=== PATIENT | male | born 1960 | race Caucasian/White ===

== ENCOUNTER 2021-11-20 07:09 | Day surgery (SDC) | payer OTHER, SELFPAY ==
[2021-11-20] VITALS (22 sets, daily range): BP systolic 98–150; BP diastolic 65–88; PULSE 44–70; RESP 12–18; TEMP 35.8–37.1; O2SAT 93–100; BMI 34.4
[2021-11-20] MEDS: OXYCODONE (CR) 10 MG TAB.ER.12H PO (07:50)
[2021-11-20] MEDS: ACETAMINOPHEN 500 MG TABLET 1000 MG PO ×3 (07:50→21:47)
[2021-11-20] MEDS: CELECOXIB 200 MG CAPSULE PO ×2 (07:50→20:55)
[2021-11-20] MEDS: LACTATED RINGERS 1000 ML 1,000 ML 100 ML IV (08:00)
[2021-11-20] MEDS: MIDAZOLAM HCL 1 MG/ML inj IVP (08:01)
[2021-11-20] MEDS: fentaNYL 100 MCG/2 ML inj IVP (08:01)
[2021-11-20] MEDS: CEFAZOLIN 2 GM INJ IVP (08:33)
--- NOTE | 2021-11-20 08:36 | SUR.PREOP ---
TIME?OUT:?0800 PT/RN/MDA?VERIFICATION?OF?SURGICAL?SITE,?PROCEDURE,?AND?CONSENT OBTAINED?PRIOR?TO?INVASIVE?PROCEDURE.
--- NOTE | 2021-11-20 09:09 | P.NB_ITS ---
Nerve Block Nerve Block Time Seen by Provider: 07:30 Date Seen: 11/20/21 Type of block requested by surgeon for post-operative analgesia: adductor canal Side: right Time out performed: Yes Verification of patient name: Yes Verification of date of : Yes Site marking: site marked Name of person performing procedure: Ramos Continuous monitoring Was continuous monitoring of O2 sat, B/P, cardiac monitor technician, recorded every 15 minutes?: Yes Procedure Checklist: sterile prep, needles and gloves Ultrasound guided. Images saved: Yes Medications given in 5ml increments after negative aspiration: Ropivicaine %: 0.5 mL: 20 Needle gauge: 22 Decadron (mg): 10 Precedex (mcg): 25 Patient tolerated procedure well: Yes Additional comments: Needle noted adjacent to nerve Block Charges Block Charge (with Pro Fee): Femoral Nerve Use of Ultrasound Machine for Block: Yes- US Guidance/pain block
--- NOTE | 2021-11-20 09:09 | P.NB_ITS ---
Nerve Block Nerve Block Time Seen by Provider: 07:30 Date Seen: 11/20/21 Type of block requested by surgeon for post-operative analgesia: geniculars Time out performed: Yes Verification of patient name: Yes Verification of date of : Yes Site marking: site marked Name of person performing procedure: Ramos Continuous monitoring Was continuous monitoring of O2 sat, B/P, campus monitor, recorded every 15 minutes?: Yes Procedure Checklist: sterile prep, needles and gloves Medications given in 5ml increments after negative aspiration: Ropivicaine %: 0.5 mL: 9 Needle gauge: 25 Patient tolerated procedure well: Yes Block Charges Block Charge (with Pro Fee): Genicular Nerve Block Use of Ultrasound Machine for Block: No
--- NOTE | 2021-11-20 09:43 | CRLHL7_ITS ---
For Patients: As a result of the Cures Act, medical imaging exams and procedure reports are released immediately into your electronic medical record. You may view this report before your referring provider. If you have questions, please contact your health care provider. Indication: POST OP RIGHT TKA Technique: Two views right knee Findings/Impression: Hardware from a right total knee arthroplasty is in satisfactory position. Bone alignment is normal. No sign of acute fracture. Postop changes are within normal limits. Dictated by Ashish Mao MD @ 11/20/2021 11:13:06 AM (Electronically Signed)
--- NOTE | 2021-11-20 09:44 | PM.ORPRC ---
Procedure Note Date of procedure: 11/20/21 Procedure: SURGEON: Hu Kapadia MD SUPERVISOR DOG LICENSE OFFICER: KERRIE Gregg PREOPERATIVE DIAGNOSIS: Right knee osteoarthritis POSTOPERATIVE DIAGNOSIS: Right knee osteoarthritis NAME OF OPERATION: Right total knee arthroplasty ANESTHESIA: Spinal ESTIMATED BLOOD LOSS: 0 mL COMPLICATIONS: None SPECIMENS: None DRAINS: None PREOPERATIVE ANTIBIOTICS: Ancef for grams IMPLANTS: 1. J&J Attune #6 posterior stabilized femur 2. #6 fixed-bearing tibia 3. #6 posterior stabilized, 7 mm fixed-bearing polyethylene 4. 41 patella INDICATIONS: The patient is a 61-year-old male with a longstanding history of severe, unrelenting right knee pain secondary to end-stage (grade IV) right knee osteoarthritis. Despite appropriate nonoperative management, including activity modification, anti-inflammatories, gknl-ejv-[id number] pain medication, bracing, physical therapy, and injections they continue to have pain and disability. Operative intervention was offered. The risks, benefits and expected outcomes were discussed in detail. These included but were not limited to: Infection, bleeding, injury to blood vessel or nerve, venous thromboembolism. All questions were answered to their satisfaction. Use of an retail assistant store manager was necessary throughout the case for patient positioning and safety, soft tissue retraction, and closure. PROCEDURE: Spinal anesthesia was administered. The patient was placed supine on the operating table. The retail assistant store manager made sure the patient was positioned appropriately. The lower extremity was prepped and draped in the usual sterile fashion. The limb was exsanguinated with the Vishnu bandage. The pneumatic tourniquet was inflated to 300 mmHg. A standard anterior incision was made with the knee in flexion. Subcutaneous dissection was sharply taken through fascial layer #1. Full-thickness medial and lateral flaps were elevated. The retail assistant store manager retracted the soft tissues and protected them throughout the case. A standard medial parapatellar approach was made. The patella was everted. The infrapatellar fat pad was preserved. The menisci and cruciate ligaments were sharply d?brided. Marginal osteophytes were d?brided with the rongeur. The drill was used to penetrate the femoral canal. The canal was aspirated and irrigated with pulse lavage. The intramedullary femoral guide was placed for a 5-degree valgus cut, removing 10 mm off the distal femur. The saw was used to make the cut. Whitesides line and the trans epicondylar axis were marked. The femoral sizing guide was pinned onto the distal femur. Three degrees of external rotation nicely parallels the transepicondylar axis. Pins were placed for posterior referencing. The four-in-one cutting guide was pinned onto the distal femur. The anterior, posterior, and chamfer cuts were made. The retail assistant store manager protected the collateral ligaments. The box cutting guide was pinned. The box cuts were made. The boxed trial was placed and was an excellent fit. Drill holes for the lugs were made. Attention was then turned to the proximal tibia. The extramedullary tibial guide was placed for a neutral varus/valgus cut with 5 degrees of posterior slope, removing 4 5th mm based off the medial tibial surface. The retail assistant store manager protected the collateral ligaments and the neurovascular bundle. The saw was used to make the cut. Trial components were placed. The knee was nicely balanced in both flexion and extension. Rotation of the tibial component was matched to the femur in full extension, matched to our tibial cutting pins, and marked with cautery. The trial components were removed. The tray was pinned by the retail assistant store manager and the drill and the punch were used. The tray was removed. The punch was used again. We placed a bone plug in the femoral canal. Attention was then turned to the patella. [place] patellar thickness was 26 mm. The lobster claw resection guide was used with the 9.5 mm marcio. The saw was used to make the cut. Drill holes were made by the retail assistant store manager. The trial was placed and was an excellent fit. Cancellous surfaces were irrigated with pulse lavage and thoroughly dried by the retail assistant store manager. We cemented the tibial component, then the femoral component. A trial spacer was placed. The knee was brought into full extension. We then cemented the patellar component. Excessive cement was removed. The cement was allowed to harden. Any remaining excessive cement was removed with the osteotome. We impacted the 7 mm polyethylene onto the tibial tray. The knee was taken through a range of motion and was found to be nicely balanced in both flexion and extension. The patella tracks centrally. The retail assistant store manager did a three minute dilute Betadine solution soak. The retail assistant store manager irrigated the wound with 3 liters of normal saline via pulse lavage. The retail assistant store manager reapproximated the extensor mechanism with #1 Vicryl in an interrupted [id number] fashion. The retail assistant store manager then ran the extensor mechanism with a #1 PDO Stratafix. The retail assistant store manager closed the subcutaneous tissues with a 3-0 Stratafix and the skin with a running 3-0 Stratafix in a subcuticular fashion. Glue was used to seal the skin. The retail assistant store manager placed a dry dressing, ELEUTERIO stocking, and Polar Care. Sponge and needle counts were correct x2. The patient tolerated the procedure well. There were no apparent complications. They were carefully transferred to the hospital bed and taken to the postanesthesia care unit in satisfactory condition. PLAN: The patient will be mobilized with physical therapy. Aspirin will be used for DVT prophylaxis. They will be discharged to home once medically appropriate.
[2021-11-20] MEDS: LACTATED RINGERS 1000 ML 1,000 ML 35 ML IV (10:14)
--- NOTE | 2021-11-20 10:21 | W.ANESCHARGE ---
Anesthesia Charges Start Date/Time Anesthesia Start Date: 11/20/21 Anesthesia Start Time: 08:13 Stop Date/Time Anesthesia Stop Date: 11/20/21 Anesthesia Stop Time: 10:19 Summary Emergency: No
--- NOTE | 2021-11-20 11:39 | W.ANESCHARGE ---
Anesthesia Charges Start Date/Time Anesthesia Start Date: 11/20/21 Anesthesia Start Time: 08:13 Stop Date/Time Anesthesia Stop Date: 11/20/21 Anesthesia Stop Time: 10:19 Summary Emergency: No
[2021-11-20] MEDS: NICOTINE 2 MG GUM BUCCAL ×2 (12:21→15:09)
[2021-11-20] MEDS: CEFAZOLIN 2 GM in 0.9 % SODIUM CHLORIDE Mini-bag 100 ML IVPB ×2 (14:51→21:48)
--- NOTE | 2021-11-20 15:25 | P.IMCN_ITS ---
Date of Consult Patient: Chato Patient Consult date: 11/20/21 Requesting Physician: Orthopedics (Kang) Primary Care Provider: Marlee Luis PA-C Consult Narrative Reason for consult: Medical management of hyponatremia Narrative: Ap Pichardo is a 61 year old male a recent history of mild asymptomatic hyponatremia who underwent elective right total knee arthroplasty by Dr. Kapadia today for severe osteoarthritis. He is doing well postoperatively. He has no complaints. He asked me about getting a colonoscopy next month. He had a normal one at age 51 and is due for his next one. He has a h/o constipation but is having occasionally diarrhea over the last 3-6 months. He denies blood in the stool or melena. I told him that he should schedule it to take place after he completes the postop twice a day aspirin. Review of Systems Status of ROS: Reports: 10 or more systems reviewed and unremarkable except as noted in History and below GI: Reports: diarrhea (3-6 months) and constipation; Denies: blood in stool : Denies: painful urination or urinary frequency PFSH PFSH Medical History (Updated 11/20/21 @ 16:53 by Crista Vázquez MD) Alcohol abuse (08/14/11) Arthritis Back pain Blurring of visual image Bulge of lumbar disc without myelopathy Chewing tobacco use (08/14/11) Chronic sinusitis Closed head injury Drug abuse (08/14/11) Generalized anxiety disorder H/O flexible sigmoidoscopy High cholesterol Hyperlipidemia (08/14/11) Hypertension Hyponatremia Meniere disease Normal colonoscopy Obesity (08/14/11) Sedative dependence Sensorineural hearing loss (SNHL) Tinnitus of right ear Surgical History (Updated 11/20/21 @ 15:26 by Crista Vázquez MD) History of ear surgery History of facial surgery History of tonsillectomy and adenoidectomy Hx of wisdom tooth extraction S/P appendectomy Status post total knee replacement, right Family History (Updated 11/20/21 @ 15:24 by Crista Vázquez MD) Father Depression Heart disease Brother Depression Social History (Updated 11/20/21 @ 16:45 by Crista Vázquez MD) Narrative: Living with girlfriend What is your current living situation: I presently have a place to live Previous occupational history: 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 Driving times are 45 minutes in cab at the most per leg of trip. This is a restriction that he has due to h/o back injury from miguel a. Smoking Status: Never smoker How often do you have a drink containing alcohol: never AUDIT-C Alcohol total score: 0 Non-prescribed substance use: denies use Meds Home Medications and Allergies Home Medications Medication Instructions Recorded Confirmed Type clonazepam 1 mg tablet (Klonopin) 1 mg PO TID 10/31/21 11/20/21 History amlodipine 10 mg tablet 10 mg PO DAILY 11/20/21 11/20/21 History atorvastatin 20 mg tablet 20 mg PO HS 11/20/21 11/20/21 History gabapentin 600 mg tablet 600 mg PO TID PRN 11/20/21 11/20/21 History lisinopril 20 mg tablet 20 mg PO HS 11/20/21 11/20/21 History mirtazapine 15 mg tablet 15 mg PO HS 11/20/21 11/20/21 History sertraline 100 mg tablet 200 mg PO DAILY 11/20/21 11/20/21 History tadalafil 10 mg tablet 10 mg PO PRN 11/20/21 History tizanidine 4 mg tablet 4 mg PO TID 11/20/21 11/20/21 History Home Medication Comments: Also uses nicotine pouches (like gum, but it is a powder that goes between lip and gum) 7mg every 1-2 hours as needed, uses about every 1.5 hours, more when stressed. He has not taken any Klonopin since yesterday afternoon. Allergies Allergy/AdvReac Type Severity Reaction Status Date / Time codeine Allergy Unknown Verified 11/20/21 07:01 penicillin V Allergy Unknown Verified 11/20/21 07:01 amoxicillin Allergy Intermediate unknown Uncoded 10/31/21 15:00 Exam Narrative: Exam Narrative: General: No acute distress. Awake alert oriented x3. Pleasant, talkative. HEENT: Normocephalic atraumatic, pupils equally round and reactive to light and accommodation. Oropharynx clear. Mucous membranes are moist. No cervical lymphadenopathy, thyromegaly or carotid bruits. No JVD. Cardiovascular: Regular rate and rhythm. No murmurs, gallops, or rubs. Chest: No increased work of breathing. Clear to auscultation bilaterally. No crackles or wheezes. Abdomen: Obese. Bowel sounds present. Soft, nondistended, nontender. No hepatosplenomegaly or masses. Extremities: Right knee bandage is clean, dry, and intact. No edema, no cyanosis or clubbing. Skin: No jaundice, no pallor, no rashes. Const: Vital Signs, click to edit/add: Vital Signs - 24 hr 11/20/21 07:15 11/20/21 10:14 11/20/21 10:20 Temperature 98.6 F 97.4 F L Pulse Rate 54 L 52 L 48 L Pulse Rate [Right Pulse Oximeter] Respiratory Rate 14 14 16 Blood Pressure 129/79 100/68 98/65 Blood Pressure [Le ft Arm] Pulse Oximetry 98 94 93 Oxygen Delivery Ne thod Room Air Room Air Room Air 11/20/21 10:50 11/20/21 10:25 11/20/21 10:30 Temperature 97.6 F 97.5 F L Pulse Rate 49 L 47 L 47 L Pulse Rate [Right Pulse Oximeter] Respiratory Rate 12 12 14 Blood Pressure 107/74 106/70 105/74 Blood Pressure [Le ft Arm] Pulse Oximetry 94 94 94 [facility] Room Air Room Air 11/20/21 10:35 11/20/21 10:40 11/20/21 10:45 Temperature Pulse Rate 46 L 45 L 47 L Pulse Rate [Right Pulse Oximeter] Respiratory Rate 12 12 14 Blood Pressure 101/67 100/69 102/66 Blood Pressure [Le ft Arm] Pulse Oximetry 94 95 94 Oxygen Delivery [facility] Room Air Room Air Room Air 11/20/21 11:27 11/20/21 11:15 11/20/21 11:30 Temperature 96.5 F L 96.5 F L 96.5 F L Pulse Rate 47 L Pulse Rate [Right Pulse Oximeter] 44 L 49 L Respiratory Rate 16 16 16 Blood Pressure Blood Pressure [Le ft Arm] 118/74 110/72 116/76 Pulse Oximetry 96 97 [facility] Room Air Room Air 11/20/21 11:45 11/20/21 12:00 11/20/21 12:30 Temperature 96.5 F L 96.7 F L 96.7 F L Pulse Rate Pulse Rate [Right Pulse Oximeter] 51 L 46 L 51 L Respiratory Rate 16 16 16 Blood Pressure Blood Pressure [Le ft Arm] 113/77 122/75 121/88 Pulse Oximetry 98 97 97 Oxygen Delivery Me thod Room Air Room Air Room Air Imaging Right knee x-ray: Attestation: I have reviewed the pertinent imaging results. Radiologist's impression: Ordering Physician: Hu Kapadia M.D. Date of Service: 11/20/21 Procedure(s): XR knee RT 2V Accession Number(s): [id number] cc: Marlee Luis PA-C; Hu Kapadia M.D.~ For Patients: As a result of the Cures Act, medical imaging exams and procedure reports are released immediately into your electronic medical record. You may view this report before your referring provider. If you have questions, please contact your health care provider. Indication: POST OP RIGHT TKA Technique: Two views right knee Findings/Impression: Hardware from a right total knee arthroplasty is in satisfactory position. Bone alignment is normal. No sign of acute fracture. Postop changes are within normal limits. Dictated by Ashish Mao MD @ 11/20/2021 11:13:06 AM (Electronically Signed) Assessment and Plan Assessment and plan (1) Status post right knee replacement: Problem comment: 11/20/2021 Kang Status: Acute Assessment and Plan: Pain control adequate. Routine post TKA prophylaxis with BID aspirin. PT and OT. Cares per Ortho. 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 Sodium check pending for morning. (6) Alcohol abuse: Problem comment: clean since 1990 Status: Chronic (7) Sedative dependence: Problem comment: Had been using Xanax, was switched to Klonopin which he takes 3 times a day. Status: Chronic Assessment and Plan: He has not had his Klonopin since yesterday afternoon. Does not appear to be going through withdrawals. Restart now. (8) Nicotine addiction: Problem comment: Uses nicotine pouches every 1-2 hours while awake Status: Acute Assessment and Plan: I have ordered this as a non formulary medication and have asked him to let us know each time he takes it. He demonstrated understanding about this.
--- NOTE | 2021-11-20 15:26 | PC.NURSE ---
Pt. up to floor at 1100. Pt. alert and oriented x4, pleasant and cooperative, GF at bedside, Pt. denies any pain, no N/V. Pt. Bradycardiac from surgery. HR improved as the day progressed. Dressing to Right knee C/D/I. Bilateral teds, bilateral plexi pulses and cryocuff to op site. IV patent in right hand, LR @ 75 mls/hr. Pt. tolerating ice chips, and water. Pt. ordered tray for lunch and ate 100%. tolerated well. Pt. able to move toes, but denies any feeling in right leg. PT in and got pt. to ambulate to chair, pt. tolerated activity well.
[2021-11-20] MEDS: OXYCODONE 5 MG TABLET PO ×3 (15:50→20:57)
--- NOTE | 2021-11-20 17:59 | PC.NURSE ---
PATIENT UP WITH A1 WALKER AND BELT TOLERATING FAIRLY, RATING PAIN IN RIGHT LEG 3-5/10 BEING MANAGED WITH PRN OXYCODONE AND SCHEDULED TYLENOL, DRESSING CDI, TOLERATING REGULAR DIET NO NAUSEA OR VOMITING.
[2021-11-20] MEDS: ATORVASTATIN 10 MG TABLET 20 MG PO (20:55)
[2021-11-20] MEDS: SENNOSIDES 1 TAB TABLET 2 TAB PO (20:55)
[2021-11-20] MEDS: clonazePAM 0.5 MG TABLET 1 MG PO (20:55)
[2021-11-20] MEDS: ASPIRIN 81 MG TABLET EC PO (20:56)
--- NOTE | 2021-11-20 22:57 | PC.NURSE ---
19-23: pleasant and cooperative. A x 1 with gb and walker. Pain 3-5/10 in right calf, PRN oxy given with relief. Pt requested to take his Mirtazapine later than scheduled time. VSS. Cryp cuff on, dressing CDI.
[2021-11-21] MEDS: OXYCODONE 5 MG TABLET PO ×4 (02:04→12:04)
[2021-11-21] MEDS: MIRTAZAPINE 15 MG TABLET PO (02:04)
[2021-11-21 02:39] VITALS: BP 132/65; PULSE 67; RESP 16; TEMP 36.8; O2SAT 98
[2021-11-21] MEDS: ACETAMINOPHEN 500 MG TABLET 1000 MG PO ×2 (03:18→09:56)
--- NOTE | 2021-11-21 05:17 | PC.NURSE ---
[id number] Pt awake until approx 0330, at which time pt finally able to fall asleep. Up to BR with walker, GB, SBA, and tolerates activity very well. Dressing to R knee C/D/I, ice to site entire shift. Pain controlled with PRN medications.
[2021-11-21] MEDS: CEFAZOLIN 2 GM in 0.9 % SODIUM CHLORIDE Mini-bag 100 ML IVPB (06:28)
[2021-11-21 06:52] LABS: Basophils Percent Auto 0.1 % (0.0-3.0); Hematocrit 37.2 % (37.0-53.0); Immature Granulocytes Abs Auto 0.04 K/uL (0.00-0.30); Mean Corpuscular HGB Conc 32 gm/dL (32-36); Mean Corpuscular Hemoglobin 30 pg (26-34); Mean Corpuscular Volume 92 fL (80-100); Monocytes Percent Auto 8.2 % (0.0-11.0); Neutrophils Percent Auto 86.4 % (42.0-72.0); Platelet Count* 295 K/uL (140-440); RDW Coefficient of Variation % 13.6 % (11.5-15.5); Red Blood Count 4.05 m/uL (4.30-5.90); White Blood Count* 14.88 K/uL (4.50-11.00)
[2021-11-21 06:57] LABS: Slide Review Reflex No
[2021-11-21 07:00] VITALS: BP 136/81; PULSE 69; RESP 16; TEMP 36.8; O2SAT 99
[2021-11-21 07:00] LABS: INR 1.01 (0.91-1.10); Prothrombin Time 13.7 Seconds
[2021-11-21 07:02] LABS: Potassium* 4.8 mmol/L (3.6-5.1)
[2021-11-21 07:05] LABS: Blood Urea Nitrogen* 17 mg/dL (7-30); Creatinine* 0.9 mg/dL (0.5-1.5); Est. Creatinine Clearance* 87.28; Estimated Glomerular Filt Rate 98 ml/min
[2021-11-21] MEDS: CELECOXIB 200 MG CAPSULE PO (07:40)
[2021-11-21] MEDS: clonazePAM 0.5 MG TABLET 1 MG PO (07:40)
[2021-11-21] MEDS: SENNOSIDES 1 TAB TABLET 2 TAB PO (07:41)
[2021-11-21] MEDS: SERTRALINE 100 MG TABLET 200 MG PO (07:42)
[2021-11-21] MEDS: ASPIRIN 81 MG TABLET EC PO (07:42)
[2021-11-21] MEDS: GABAPENTIN 600 MG TABLET PO (07:42)
--- NOTE | 2021-11-21 09:50 | PM.ORPN ---
Subjective Subjective Time Seen by Provider: 08:00 Date Seen: 11/21/21 Principal diagnosis: Status post right total knee arthroplasty Interval history: Ap is comfortable this morning at rest. He states that he had a Synvisc injection about 4-[address] Gabriel. He asks if this increases his risk of infection. Ortho Exam Narrative Exam Narrative: Alert and oriented x3. Patient is in no acute distress. Converses without labored breathing. Hearing is grossly intact. Ambulates with a walker. Examination of the right knee shows the incision is covered with a Mepilex dressing. Dressing is intact. No erythema. Mild effusion. Mild soft tissue edema about the right knee. Bilateral calves are soft and nontender. CMS is intact right lower extremity. Const Vital Signs, click to edit/add: Vital Signs - 24 hr 11/20/21 10:14 11/20/21 10:20 11/20/21 10:50 Temperature 97.4 F L 97.6 F Pulse Rate 52 L 48 L 49 L Pulse Rate [Right Pulse Oximeter] Respiratory Rate 14 16 12 Blood Pressure 100/68 98/65 107/74 Blood Pressure [Left Arm] Pulse Oximetry 94 93 94 Oxygen Delivery Method Room Air Room Air Room Air 11/20/21 10:25 11/20/21 10:30 11/20/21 10:35 Temperature 97.5 F L Pulse Rate 47 L 47 L 46 L Pulse Rate [Right Pulse Oximeter] Respiratory Rate 12 14 12 Blood Pressure 106/70 105/74 101/67 Blood Pressure [Left Arm] Pulse Oximetry 94 94 94 Oxygen Delivery Method Room Air Room Air Room Air 11/20/21 10:40 11/20/21 10:45 11/20/21 11:27 Temperature 96.5 F L Pulse Rate 45 L 47 L 47 L Pulse Rate [Right Pulse Oximeter] Respiratory Rate 12 14 16 Blood Pressure 100/69 102/66 Blood Pressure [Left Arm] 118/74 Pulse Oximetry 95 94 Oxygen Delivery Method Room Air Room Air Room Air 11/20/21 11:15 11/20/21 11:30 11/20/21 11:45 Temperature 96.5 F L 96.5 F L 96.5 F L Pulse Rate Pulse Rate [Right Pulse Oximeter] 44 L 49 L 51 L Respiratory Rate 16 16 16 Blood Pressure Blood Pressure [Left Arm] 110/72 116/76 113/77 Pulse Oximetry 96 97 98 Oxygen Delivery Method Room Air Room Air Room Air 11/20/21 12:00 11/20/21 12:30 11/20/21 13:00 Temperature 96.7 F L 96.7 F L 97.1 F L Pulse Rate Pulse Rate [Right Pulse Oximeter] 46 L 51 L 47 L Respiratory Rate 16 16 16 Blood Pressure Blood Pressure [Left Arm] 122/75 121/88 122/75 Pulse Oximetry 97 97 100 Oxygen Delivery Method Room Air Room Air Room Air 11/20/21 14:00 11/20/21 15:00 11/20/21 16:30 Temperature 97.2 F L 97.2 F L 97.8 F Pulse Rate Pulse Rate [Right Pulse Oximeter] 60 68 63 Respiratory Rate 16 16 16 Blood Pressure Blood Pressure [Left Arm] 116/70 125/74 135/76 Pulse Oximetry 94 93 96 Oxygen Delivery Method Room Air Room Air Room Air 11/20/21 17:30 11/20/21 19:00 11/20/21 23:00 Temperature 98.7 F 98.7 F Pulse Rate Pulse Rate [Right Pulse Oximeter] 67 70 69 Respiratory Rate 16 18 16 Blood Pressure Blood Pressure [Left Arm] 139/77 150/74 H 119/75 Pulse Oximetry 97 98 94 Oxygen Delivery Method Room Air Room Air Room Air 11/21/21 02:39 11/21/21 07:00 Temperature 98.3 F 98.3 F Pulse Rate Pulse Rate [Right Pulse Oximeter] 67 69 Respiratory Rate 16 16 Blood Pressure Blood Pressure [Left Arm] 132/65 136/81 Pulse Oximetry 98 99 Oxygen Delivery Method Room Air Room Air Assessment and Plan Assessment and plan (1) Status post right knee replacement: Problem details: 11/20/2021 Kang Status: Acute Assessment and Plan: His recent Synvisc injection is discussed with Dr. Kapadia. Ap asks if he should be on antibiotics for a period of time post surgery. Dr. Kapadia states his postoperative antibiotics are sufficient and no need to continue there after. Plan for discharge is today to home if they meet discharge criteria. DVT prophylaxis includes aspirin 81 mg twice daily x1 month, Ryder stockings x1 month may remove for 1 hr per day, frequent ambulation Remove dressing in 1 week. Observe wound and phone Orthopedics with any questions or concerns Return to clinic in 1 week for a wound check Return to clinic in [address] Kapadia Minimize narcotic use. Wean off and discontinue soon as possible. Activities as tolerated. No strenuous activity. Outpatient physical therapy as scheduled. Ice and elevate the operative extremity. No restriction on ice. 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 Status: Chronic (8) Nicotine addiction: Problem details: Uses nicotine pouches every 1-2 hours while awake Status: Acute
--- NOTE | 2021-11-21 10:06 | PM.DS1 ---
DS: Providers Provider Date Seen: 11/21/21 Primary care physician: Marlee Luis PA-C Attending Physician on discharge: Hu Kapadia MD Date of Discharge: 11/21/21 DS: Diagnosis Discharge Diagnosis (1) Nicotine addiction: Status: Acute Problem details: Uses nicotine pouches every 1-2 hours while awake (2) Hyponatremia: Status: Chronic Problem details: 11/06/2021 sodium 132 (3) Sedative dependence: Status: Chronic Problem details: Had been using Xanax, was switched to Klonopin which he takes 3 times a day. (4) Osteoarthritis of right knee: Status: Chronic Problem details: Now status post right total knee arthroplasty DS: Summary Hospital Course Hospital Course: 61-year-old male admitted for knee arthroplasty. Procedures performed by Dr. Kapadia. No complications. Postoperatively he is doing well. Pain is well controlled. He he is able to ambulate. No nausea or dyspnea or fever. Status at Discharge Functional status at discharge: uses cane/walker Overall status at discharge: patient is back to baseline Time Spent with Patient Time attestation: Total time spent providing and/or coordinating discharge services: Exam Narrative: Exam Narrative: He is alert and appears in no distress. Breathing is unlabored. He has no significant edema. Intact pedal pulses. Intact strength and sensation in both feet and ankles. Const: Vital Signs, click to edit/add: Vital Signs - 24 hr 11/20/21 10:14 11/20/21 10:20 11/20/21 10:50 Temperature 97.4 F L 97.6 F Pulse Rate 52 L 48 L 49 L Pulse Rate [Right Pulse Oximeter] Respiratory Rate 14 16 12 Blood Pressure 100/68 98/65 107/74 Blood Pressure [Le ft Arm] Pulse Oximetry 94 93 94 Oxygen Delivery Me thod Room Air Room Air Room Air 11/20/21 10:25 11/20/21 10:30 11/20/21 10:35 Temperature 97.5 F L Pulse Rate 47 L 47 L 46 L Pulse Rate [Right Pulse Oximeter] Respiratory Rate 12 14 12 Blood Pressure 106/70 105/74 101/67 Blood Pressure [Le ft Arm] Pulse Oximetry 94 94 94 Oxygen Delivery Me thod Room Air Room Air Room Air 11/20/21 10:40 11/20/21 10:45 11/20/21 11:27 Temperature 96.5 F L Pulse Rate 45 L 47 L 47 L Pulse Rate [Right Pulse Oximeter] Respiratory Rate 12 14 16 Blood Pressure 100/69 102/66 Blood Pressure [Le ft Arm] 118/74 Pulse Oximetry 95 94 Oxygen Delivery Me thod Room Air Room Air Room Air 11/20/21 11:15 11/20/21 11:30 11/20/21 11:45 Temperature 96.5 F L 96.5 F L 96.5 F L Pulse Rate Pulse Rate [Right Pulse Oximeter] 44 L 49 L 51 L Respiratory Rate 16 16 16 Blood Pressure Blood Pressure [Le ft Arm] 110/72 116/76 113/77 Pulse Oximetry 96 97 98 Oxygen Delivery Me thod Room Air Room Air Room Air 11/20/21 12:00 11/20/21 12:30 11/20/21 13:00 Temperature 96.7 F L 96.7 F L 97.1 F L Pulse Rate Pulse Rate [Right Pulse Oximeter] 46 L 51 L 47 L Respiratory Rate 16 16 16 Blood Pressure Blood Pressure [Le ft Arm] 122/75 121/88 122/75 Pulse Oximetry 97 97 100 Oxygen Delivery Me thod Room Air Room Air Room Air 11/20/21 14:00 11/20/21 15:00 11/20/21 16:30 Temperature 97.2 F L 97.2 F L 97.8 F Pulse Rate Pulse Rate [Right Pulse Oximeter] 60 68 63 Respiratory Rate 16 16 16 Blood Pressure Blood Pressure [Le ft Arm] 116/70 125/74 135/76 Pulse Oximetry 94 93 96 Oxygen Delivery Me thod Room Air Room Air Room Air 11/20/21 17:30 11/20/21 19:00 11/20/21 23:00 Temperature 98.7 F 98.7 F Pulse Rate Pulse Rate [Right Pulse Oximeter] 67 70 69 Respiratory Rate 16 18 16 Blood Pressure Blood Pressure [Le ft Arm] 139/77 150/74 H 119/75 Pulse Oximetry 97 98 94 Oxygen Delivery Me thod Room Air Room Air Room Air 11/21/21 02:39 11/21/21 07:00 Temperature 98.3 F 98.3 F Pulse Rate Pulse Rate [Right Pulse Oximeter] 67 69 Respiratory Rate 16 16 Blood Pressure Blood Pressure [Le ft Arm] 132/65 136/81 Pulse Oximetry 98 99 Oxygen Delivery Me thod Room Air Room Air Documenting provider has reviewed patient's vital signs: yes DS: Data Data Completed and Pending Labs on day of discharge: Labs from last 24 hours 11/21/21 11/21/21 11/21/21 06:15 06:15 06:15 WBC 14.88 H RBC 4.05 L Hgb 12.0 L Hct 37.2 MCV 92 MCH 30 MCHC 32 RDW Coeff of Eriberto 13.6 Plt Count 295 Neut % (Auto) 86.4 H Lymph % (Auto) 5.0 L Keith % (Auto) 8.2 Eos % (Auto) 0.0 Baso % (Auto) 0.1 Neut # (Auto) 12.90 H Lymph # (Auto) 0.70 L Keith # (Auto) 1.20 H Eos # (Auto) 0.00 Baso # (Auto) 0.00 Abs Immat Gran (auto) 0.04 INR 1.01 Potassium 4.8 BUN 17 Creatinine 0.9 Estimated Creat Clear 87.28 Estimated GFR 98 Discharge Plan Discharge Disposition: Home, Self-Care Discharging Surgeon: Hu Kapadia Follow-Up Appointment: One week Prescriptions: New aspirin 81 mg Tablet,Delayed Release (Dr/Ec) 81 mg PO BID Qty: 60 0RF acetaminophen 500 mg Tablet 500 - 1,000 mg PO Q6H PRNQty: 100 0RF sennosides [Senna Lax] 8.6 mg Tablet 17.2 mg PO BID PRN (Reason: constipation) Qty: 100 0RF oxycodone 5 mg Tablet 2.5 - 5 mg PO Q4-6H MDD 6 tabs per day PRN (Reason: Pain) Qty: 42 0RF Rx Instructions: Minimize. Discontinue as soon as possible Continued clonazepam [Klonopin] 1 mg tablet 1 mg PO TID atorvastatin 20 mg tablet 20 mg PO HS lisinopril 20 mg tablet 20 mg PO HS mirtazapine 15 mg tablet 15 mg PO HS sertraline 100 mg tablet 200 mg PO DAILY amlodipine 10 mg tablet 10 mg PO DAILY gabapentin 600 mg tablet 600 mg PO TID PRN Label Comments: TAKE ONE TABLET BY MOUTH THREE TIMES A DAY when working on weekdays tadalafil 10 mg tablet 10 mg PO PRN Label Comments: TAKE ONE TABLET BY MOUTH EVERY DAY NEEDED FOR ERECTILE DYSFUNCTION. TAKE 30 MIN BEFORE SEXUAL ACTIVITY Held tizanidine 4 mg tablet 4 mg PO TID Hold Instructions: Resume on 12/04/21. May restart when no longer taking oxycodone Label Comments: TAKE ONE TABLET BY MOUTH EVERY 6 HOURS NEEDED FOR MUSCLE SPASMS, takes M-F due to strain of work Activity Level: Activity as Tolerated and No strenuous activity Activity Detail: Keep dressing on for 1 week. Dressing is waterproof. May shower. Surgical glue covers the wound. Attend outpatient physical therapy if scheduled. Ice operative extremity without restriction. Wear compression stockings for 1 month post surgery. May remove for 1 hour per day. Ambulate every hour throughout the day. Do not drive while taking narcotic pain medication. Do not drink alcohol while taking narcotic pain medication. May drive when safe to do so and have full function of the extremities, this may take 6 weeks or more. Notify Orthopedics with any questions or concerns. ([phone]) Discharge Diet: Low Fat/Low Cholesterol Patient Instructions: Acetaminophen (By mouth), Aspirin (By mouth), Oxycodone, Rapid Release (By mouth), Senna (By mouth), Knee Replacement (DC) Forms: Work/Release Restrictions Follow-up: [facility] [Other] - 11/22/21 9:00 am Alison Conway PA-C [Physician Artificial Limb Fitter] - 11/28/21 9:10 am ([facility]) Marlee Luis PA-C [Primary Care Provider] - (Schedule appt as needed.) Discharge Orders: Discharge Order (Routine); Ordered 11/21/21 Ordered By: Haroon Sun
[2021-11-21 11:23] LABS: Sodium* 140 mmol/L (135-149)
--- NOTE | 2021-11-21 12:56 | PC.NURSE ---
PATIENT PLEASANT AND COOPERATIVE, UP WITH SBA WITH WALKER AND BELT, TOLERATING FAIRLY, TOLERATING REGULAR DIET NO NAUSEA OR VOMITING, DRESSING CDI, USING CYRO CUFF AT REST, RATING PAIN 0/10 AT REST, 5/10 WITH MOVEMENT IN RIGHT KNEE/LEG, BEING MANAGED WITH PRN OXYCODONE AND SCHEDULED TYLENOL, PATIENT AND S.Scott ONTIVEROS VERBALIZED UNDERSTANDING OF DISCHARGE INFORMATION AND HAD NO FURTHER QUESTIONS AT THIS TIME, IV REMOVED, BELONGINGS RETURNED TO PATIENT.
== END 2021-11-21 12:30 | disposition home or self-care (01) ==
LOC: OR 07:11 → MEDSURG 07:14
PROVIDERS: PCP Physician Assistant Medical; Visit Provider Orthopaedic Surgery
PROC: (CPT 27447; principal; 2021-11-20 09:00)
DX: M17.11 Unilateral primary osteoarthritis, right knee (principal); R00.1 Bradycardia, unspecified; E87.1 Hypo-osmolality and hyponatremia; F41.1 Generalized anxiety disorder; I10 Essential (primary) hypertension; F10.10 Alcohol abuse, uncomplicated; S83.241A Other tear of medial meniscus, current injury, right knee, initial encounter; S83.511A Sprain of anterior cruciate ligament of right knee, initial encounter; F13.20 Sedative, hypnotic or anxiolytic dependence, uncomplicated; E78.5 Hyperlipidemia, unspecified; M51.26 Other intervertebral disc displacement, lumbar region
CPT/HCPCS: 27447; 1402; 36415; 64447; 64454; 73560; 76942; 82565; 84132; 84295; 84520; 85025; 85610; 97110; 97116; 97161; 97165; 97530; 97535; A9270; C1776; J0690; J1100; J2250; J2795; J3010; J7120

== ENCOUNTER 2022-02-13 14:30 | Outpatient (RCR) | payer OTHER, SELFPAY ==
--- NOTE | 2021-11-28 14:30 | PC.SOCIAL ---
Spoke with pt. multiple times. Pt. discharged home following knee surgery and called surgeon office stating he fell 2x and now wants a SNF. Contact nursing homes that take pt.'s [facility] [place] and verified pt. does not have [facility] benefit. Contacted 7 home care agencies to see if they have availability to see pt. in his home. No home care had availability to see pt. in [place] due to no staff for that area or overbooked. Pt. states he is not sure how he will get to his outpatient physical therapy appointments. Pt. asked for taxi vouchers. Explained we cannot provide this and he should contact the county through his [place]. Pt. states his girlfriend did this and he has no coverage for transportation. Put in a volunteer ride request though [facility] agency to see if they can assist pt. with future physical therapy rides.
--- NOTE | 2021-11-29 10:01 | PT.OPEX ---
PT [place] Outpatient Eval PT [facility] Outpatient Eval Start: 11/26/21 09:42 Freq: Status: Active Protocol: Document 11/29/21 09:53 RIP (Rec: 11/29/21 10:00 CLEj [id number]) E-signed By Daysi Chopra PT Physical Therapy Outpatient Evaluation Insurance Information Insurance Name Other; See Comments Insurance Information/Comments [facility] Medical Diagnosis p/o Rt TKR DOS: 11/20/21 Treating Diagnosis Impaired gait/balance/ coordination Reduced AROM Rt knee Edema Rt knee Impaired ease of ADL's Referring MD Dr. Hu Kapadia Subjective Subjective Ap reports having fci Rt knee pain due to severe arthritic changes, denies injury. This is his first surgery on his knee. Surgery itself went well, but when I was DC home - I fell twice in 3 days. Went back to Dr for X-Ray, all was fine and given ok to initiate PT, so here today. I am in constant pain over my full front of knee and travels to the inside of when walking. I have been using the ice machine at home, but not doing any of my exercises, I am just in too much pain. I have just been doing ankle pumps. Taking oxecodon for pain control. Sleeping poorly. Denies N/T. No stairs in my house and my girl friend is at home helping me. 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 No RTW date set Precautions Treatment Precautions/Contraindications substance abuse Arthritis Weight Bearing Status Full Weight Bearing Therapy Limitations/Systems Review Vision Objective Range of Motion Rt knee AROM 12-80 PROM 9- 92 Lt knee AROM 2-0-136 Strength At least 3/5 to independently lift on/off plinth. Lt side 5/5 knee flex/ext Swelling Mid patellar girth Rt involved 47.2 / Lt 42.1 cm Palpation MOderate increase in tone at Rt mid to distal quad, ADD and ITB and hamstring, as well as superior to mid gastroc Balance & Gait Step to gait with 4WW. He is placing minimal weight into Rt leg. Very slow gait pace cannot SLS Posture Flattened lumbar Assessment Assessment/Impression 61 yo male with DX of Rt TKR, with DOS: 11/20/21. He arrived to dept this date via IND ambulation with use of 4WW. He was of No Show status for his previously scheduled 3 PT sessions. Ambulation of FF at trunk/hip and step to short steps with minimal WB into Rt LE and much WB into kj UE. He has flat foot strike and approx 10-15 ext in knee, slides foot forward vs lifting with each step. Sit to stand with all WB into Lt LE and UE on chair arms. Bed mob with minimal assist lifting Rt leg up to plinth. AROM 12-80 deg / PROM 9-92 deg. Lt non- involved knee 2-0-136 deg. Mid pat girth Rt 47.2 cm and Lt is 42.1 cm. He has gross hypertonicity and reports pain with light+ palpation pressure, at full knee. Greatest tone at distal ITB, distal ADD and hamstring and upper gastroc. His walking tolerance in dept this date was 4 minutes. He states that is approximately all the walking he is doing at home as well. He will benefit from continued skilled physical therapy to advance gait/ balance/ambulation skills and endurance, progressive stretch /strength HEP and postural tips. Thank you for this referral. Plan of Care Rehabilitation Potential Good Physical Therapy Goals In 6-8 visits, Ap will be able to: 1. Sit to stand without use of UE on chair arms and with symmetric WB 2. Ambulate up to 30 min with least necessary adaptive aid, symmetric stride and heel to toe gait. 3. A/D flight of 10 steps reciprocally without use of UE on railings In 10-14 visits, Ap will be able to: 1. IND in entire HEP for self cares once DC from PT 2. Good quad control both eccentric and concentric to allow reciprocal ladder climb to RTW (ladder climb up side of truck 10X/Day to 15 feet - secure tarp over recyclable truck contents) 3. Stand/walk up to 4 hours per day without pain greater than 3/10 4. AROM 0-120 minimum for unhindered ADL's and community ambulation, socializing, work tasks. Coordination/Communication With Referral Source Treatment Plan/Direct Interventions Gait Training,Ice/Cold/ Vasopneumatic,Joint Mobilization,Manual Therapy, Self-Care/Home Management, Therapeutic Activities, Therapeutic Exercises Frequency/Duration 2X/Wk for 20 visits Patient Will Be Discharged From Therapy Completion of LTG(s),Skills Plateau,Independent w/HEP, Independently Progressing Evaluation Billing Untimed Code Treatment Minutes 29 Complexity Moderate Certification Information Physician Comment/Change Comment or Changes Physician NPI Number #
== END 2022-10-03 23:59 | disposition home or self-care (01) ==
PROVIDERS: PCP Physician Assistant Medical; Visit Provider Orthopaedic Surgery
DX: Z96.651 Presence of right artificial knee joint (principal); Z51.89 Encounter for other specified aftercare
CPT/HCPCS: 97110; 97116; 97140; 97162; J0690; J2704

== ENCOUNTER 2022-03-25 07:09 | Outpatient (CLI) | payer MEDICAID, SELFPAY ==
--- NOTE | 2022-03-25 08:37 | W.ANESCHARGE ---
Anesthesia Charges Start Date/Time Anesthesia Start Date: 03/25/22 Anesthesia Start Time: 08:05 Stop Date/Time Anesthesia Stop Date: 03/25/22 Anesthesia Stop Time: 08:30 Summary Emergency: No
== END 2022-03-25 07:10 | disposition home or self-care (01) ==
PROVIDERS: PCP Physician Assistant Medical; Visit Provider Internal Medicine Gastroenterology
DX: Z12.11 Encounter for screening for malignant neoplasm of colon (principal); K63.5 Polyp of colon; K62.1 Rectal polyp
CPT/HCPCS: 00811; 45385; 88305; J2704

== ENCOUNTER 2023-04-01 06:39 | Day surgery (SDC) | payer OTHER, MEDICAID, SELFPAY ==
[2023-03-31] MEDS: LACTATED RINGERS 1000 ML 1,000 ML 100 ML IV ×2 (07:40→10:03)
[2023-03-31] MEDS: fentaNYL 100 MCG/2 ML inj IVP (08:55)
[2023-04-01] VITALS (28 sets, daily range): BP systolic 121–166; BP diastolic 68–98; PULSE 52–72; RESP 12–20; TEMP 36.1–36.9; O2SAT 64–100; BMI 33.3
--- OUTSIDE RECORDS SUMMARY | 2023-04-01 06:42 | XMS_ITS | Clinical Summary ---
Author Name Unknown Organization [email or web address] Address [place], [place] [address] Care Team Providers Care Rock Lather Name Role Phone Marlee Luis Primary Care Provider Allergies Active Allergy Reactions Criticality Noted Date Comments Amoxicillin-Pot Clavulanate Rash 11/18/2006 Codeine Agitation,Anxiety,Ot her - Describe In Comment Field 11/18/2006 Jittery and can't sleep Penicillins Rash 11/18/2006 Medications Medication Sig Dispensed Refills Start Date End Date Status sertraline (ZOLOFT) 100 mg tabletIndications:SG (generalized anxiety disorder) TAKE 2 TABLETS BY MOUTH EVERY MORNING 60 tablet 11 09/03/2017 Active mirtazapine (REMERON) 15 mg tablet Take 15 mg by mouth at bedtime. 3 10/07/2017 Active durable medical equipment (DME)Indications:Lumb ar facet joint syndrome,Bulge of lumbar disc without myelopathy Jimmy chair and therapy ball. 99 months. 1 Each 0 12/25/2017 Active clonazePAM (KLONOPIN) 1 mg tablet Take 1 mg by mouth 3 times daily. 3 01/01/2019 Active naproxen (NAPROSYN) 500 mg tabletIndications:Bul ge of lumbar disc without myelopathy,DDD (degenerative disc disease), lumbar TAKE 1 TABLET BY MOUTH EVERY 12 HOURS IF NEEDED FOR PAIN. 180 tablet. 0 04/03/2019 Active tadalafiL (CIALIS) 10 mg tabletIndications:ED (erectile dysfunction) of non-organic origin Take 1 Tablet (10 mg) by mouth once daily if needed (Erectile dysfunction). Take 30 minutes before sexual activity. 20 Tablet 0 07/03/2022 Active gabapentin (NEURONTIN) 600 mg tabletIndications:Lum bar radiculopathy TAKE ONE TABLET BY MOUTH THREE TIMES A DAY 90 Tablet 5 10/07/2022 Active amLODIPine (NORVASC) 10 mg tabletIndications:HTN (hypertension) Take 1 Tablet (10 mg) by mouth once daily. 90 Tablet 3 11/19/2022 Active atorvastatin (LIPITOR) 20 mg tabletIndications:Hyp ercholesterolemia Take 1 Tablet (20 mg) by mouth at bedtime. 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, cochleovestibular Resolved Problems Problem Noted Date Diagnosed Date Resolved Date Sedative dependence 10/12/2021 03/25/19 24 Controlled substance agreement signed 07/25/2016 01/13/2019 Overview: Signed 12/18/2015; Dr.Shannon Butler Psychiatry Encounters Date Type Department Care Team Description 03/25/2023 12:10 PM COAT CHECK ATTENDANT Preop Visit [facility] [address] [place] [address] Marlee Luis PA Preoperative Exam (L knee replacement) 03/25/2023 Travel 01/20/2023 2:40 PM COAT CHECK ATTENDANT Preop Visit [facility] [address] [place] [address] Marlee Luis PA Preoperative Exam (Teeth pulled dentures put in) 01/20/2023 Travel 01/06/2023 Refill [facility] [address] [place], [place] [id number] Narayan Gabriel MD Refill Request (Tizanidine) from Last 3 Months Immunizations Name Administration Dates Next Due COVID-19 Vaccine Spikevax (M oderna 50mcg/0.5mL) 12YO+ [id number] Formula PF 01/20/2023 COVID-19 vaccine (Diego-J& J) PF, MDV 06/01/2020 COVID-19 vaccine ([employer]-Bio NTech 30mcg/0.3mL) 12YO+ BIVALENT PF, MDV 02/05/2022 COVID-19 vaccine (Pfizer-Bio NTech 30mcg/0.3mL) 12YO+ SUNDAY-SUCROSE PF, MDV 11/06/2021 Influenza, IIV3 (Age >=3 years) 03/23/2012 Influenza, IIV4 01/20/2023,,05/07/2020,2018,02/16/2018 Td, Preservative Free (age > = 7 Years) 11/19/2022 Tdap 04/07/2012,08/14/2011 Zoster (Shingrix-RZV, recombinant) 03/22/2022, Family History Medical History Relation Name Comments Depression Brother Depression Father Heart Disease Father Good Health Mother Relation Name Status Comments Brother Father Mother Alive Social History Tobacco Use Types Packs/Day Years Used Date Smoking Tobacco: Never Smokeless Tobacco: Former Chew Quit: 09/08/2011 Tobacco Cessation:Counseling Given: Yes Alcohol Use Standard Drinks/Week Comments No 0 (1 standard drink = 0.6 oz pur e alcohol) PHQ-2 Answer Date Recorded PHQ-2 TOTAL SCORE 0 11/19/2022 Social Connections Answer Date Recorded Frequency of Communication with Friends and Fami ly 0 03/25/2023 Financial Resource Strain Answer Date R ecorded Difficulty of Paying Living Expenses 3 03/25/2023 Difficulty of Paying Living Expenses Not on file 03/25/2023 Food Insecurity Answer Date Recorded Worried About Running Out of Food in the Last Ye ar 1 03/25/2023 Transportation Needs Answer Date Record ed Lack of Transportation (Medical) 1 03/25/2023 Housing Stability Answer Date Recorded Unable to Pay for Housing in the Last Year 1 03/25/2023 Sex and Gender Information Value Date Recorded Sex Assigned at Not on file Gender Identity Not on file Sexual Orientation Not on file Obstetrics History Last Filed Vital Signs Vital Sign Reading Time Taken Comments Blood Pressure 138/77 03/25/2023 11:56 AM COAT CHECK ATTENDANT Pulse 61 03/25/2023 11:56 AM COAT CHECK ATTENDANT Temperature 36.8 ??C (98.2 ??F) 10/11/2021 1:56 PM CD T Respiratory Rate 20 01/13/2019 10:11 AM CDT Oxygen Saturation 97% 03/25/2023 11:56 AM COAT CHECK ATTENDANT Inhaled Oxygen Concentration - - Weight 102.5 kg (226 lb) 03/25/2023 11:56 AM COAT CHECK ATTENDANT Height 176.5 cm (5' 9.49) 03/25/2023 11:[address] Body Mass Index 32.91 03/25/2023 11:56 AM COAT CHECK ATTENDANT Plan of Treatment Health Maintenance Due Date Last Done Comments HIV for age 15-65 1976 Depression screening for age 12+ 11/20/2023 11/19/2022, 08/01/2020, 01/26/2019, Additional history exists BMI (ht and wt on same day) for age 18+ 03/25/2024 03/25/2023, 01/20/2023, 11/19/2022, Additional history exists Lipids for age 45-75 11/20/2027 11/19/2022, 10/18/2021, 02/15/2021, Additional history exists Colonoscopy through age 75 03/25/203203/25, 03/25/2022, 10/03/2011 (Completed outside of [facility]) Tetanus booster 11/19/2032 11/19/2022, 03/18, 08/14/2011 Tdap Completed 04/07/2012, 08/14/2011 Hepatitis C screening for age 18-79 Completed 02/16/2018 Zoster (shingles) series for age 50+ Completed 03/22/2022, 08/01/2020 COVID-19 vaccine series Completed 01/21/20, 02/05/2022, 11/06/2021, Additional history exists Influenza for age 50-64 Completed 01/21/20 23, 02/05/2022, 05/07/2020, Additional history exists Pneumococcal series for age 6-64 Aged Out No longer eligible based on patient's age to complete this topic Procedures Procedure Name Priority Date/Time Associated Diagnosis Comments EKG 12 LEAD Routine 03/27/2023 7:05 AM COAT CHECK ATTENDANT Preop general physical exam HTN (hypertension) RI READING EKG - NO CHARGE, COMP ONLY Routine 03/27/2023 7:04 AM COAT CHECK ATTENDANT Preop general physical exam HTN (hypertension) BASIC METABOLIC PANEL Routine 03/25/2023 12:46 PM COAT CHECK ATTENDANT Preop general physical exam HTN (hypertension) HEMOGLOBIN Routine 03/25/2023 12:46 PM COAT CHECK ATTENDANT Preop general physical exam HTN (hypertension) from Last 3 Months Results * EKG 12 LEAD (03/27/2023 7:05 AM COAT CHECK ATTENDANT) Marlee HANNON EKG ORD * RI READING EKG - NO CHARGE, COMP ONLY (03/27/2023 7:04 AM COAT CHECK ATTENDANT) Marlee HANNON PB - PROVIDER R EADINGS * HEMOGLOBIN (03/25/2023 12:46 PM COAT CHECK ATTENDANT) HEMOGLOBIN 13.7 13.5 - 17.5 g/dL 03/25/2023 12:51 PM COAT CHECK ATTENDANT [facility] MCV 91 80 - 100 fL 03/25/2023 12:51 PM COAT CHECK ATTENDANT [facility] Blood BLOOD SPECIMEN / Unknown Venipuncture / Unknown 03/25/2023 12:46 PM COAT CHECK ATTENDANT 03/25/2023 12:47 PM COAT CHECK ATTENDANT Marlee HANNON HEMATOLOGY [facility] [address] [place] [address], [place] [phone] * (ABNORMAL) BASIC METABOLIC PANEL (03/25/2023 12:46 PM COAT CHECK ATTENDANT) SODIUM 137 136 - 145 mmol/L 03/25/2023 9:47 PM [facility] POTASSIUM 4.8 3.5 - 5.1 mmol/L 03/25/2023 9:47 PM [facility] CHLORIDE 96(L) 98 - 107 mmol/L 03/25/2023 9:47 PM [facility] CO2,TOTAL 28 22 - 29 mmol/L 03/25/2023 9:47 PM [facility] ANION GAP 13 5 - 18 03/25/2023 9:47 PM [facility] GLUCOSE 94 70 - 99 mg/dL 03/25/2023 9:47 PM [facility] CALCIUM 10.0 8.8 - 10.2 mg/dL 03/25/2023 9:47 PM [facility] BUN 15 8 - 23 mg/dL 03/25/2023 9:47 PM [facility] CREATININE 1.00 0.70 - 1.20 mg/dL 03/25/2023 9:47 PM [facility] BUN/CREAT RATIO 15 10 - 20 9:47 PM [facility] eGFR 86(L) >90 mL/min/1.7 3m2 03/25/2023 9:47 PM [facility] Comment:As of 2021, eG FR is calculated by the CKD-EPI creatinine equation without race adjustment. ??eGFR can be influenced by muscle mass, exercise, and diet. ??The reported eGFR is an estimation only and is only applicable if the renal function is stable. Blood BLOOD SPECIMEN / Unknown Venipuncture / Unknown 03/25/2023 12:46 PM COAT CHECK ATTENDANT 03/25/2023 12:47 PM [facility] Marlee HANNON CHEMISTRY [facility] [address] [place] [address], from Last 3 Months Advance Directives Latest Code Status on File Code Status Date Activated Date Inactivated Comments Full Code 04/10/2012 9:56 AM 04/11/2012 3:42 PM Care Teams Rock Lather Relationship Specialty Start Date End Date Marlee Luis PA [address] [place] [address] PCP - General Family Practice 04/01/12
[2023-04-01] MEDS: CELECOXIB 200 MG CAPSULE PO (06:58)
[2023-04-01] MEDS: OXYCODONE (CR) 10 MG TAB.ER.12H PO (06:58)
[2023-04-01] MEDS: ACETAMINOPHEN 500 MG TABLET 1000 MG PO ×3 (06:58→20:22)
[2023-04-01] MEDS: LACTATED RINGERS 1000 ML 1,000 ML 100 ML IV ×3 (08:00→10:03)
[2023-04-01] MEDS: MIDAZOLAM HCL 1 MG/ML inj IVP (08:55)
--- NOTE | 2023-04-01 09:07 | SUR.PREOP ---
TIME?OUT:?0853 PT/RN/MDA?VERIFICATION?OF?SURGICAL?SITE,?PROCEDURE,?AND?CONSENT OBTAINED?PRIOR?TO?INVASIVE?PROCEDURE.
[2023-04-01] MEDS: CEFAZOLIN 2 GM INJ IVP (09:34)
[2023-04-01] MEDS: TRANEXAMIC ACID 100 MG/ML INJ 1000 MG IV (09:35)
--- NOTE | 2023-04-01 09:38 | P.NB_ITS ---
Nerve Block Nerve Block Time Seen by Provider: 08:58 Date Seen: 04/01/23 Type of block requested by surgeon for post-operative analgesia: adductor canal Side: left Time out performed: Yes Verification of patient name: Yes Verification of date of : Yes Site marking: site marked Name of person performing procedure: Ramos Continuous monitoring Was continuous monitoring of O2 sat, B/P, phototypesetting equipment monitor, recorded every 15 minutes?: Yes Procedure Checklist: sterile prep, needles and gloves Ultrasound guided. Images saved: Yes Medications given in 5ml increments after negative aspiration: Ropivicaine %: 0.5 mL: 30 Needle gauge: 20 Decadron (mg): 10 Precedex (mcg): 25 Patient tolerated procedure well: Yes Additional comments: needle noted adjacent to nerve Block Charges Block Charge (with Pro Fee): Femoral Nerve Use of Ultrasound Machine for Block: Yes- US Guidance/pain block
--- NOTE | 2023-04-01 09:39 | W.ANESCHARGE ---
Anesthesia Charges Start Date/Time Anesthesia Start Date: 04/01/23 Anesthesia Start Time: 09:19 Stop Date/Time Anesthesia Stop Date: 04/01/23 Anesthesia Stop Time: 11:28
--- NOTE | 2023-04-01 09:40 | W.PM.NB ---
Nerve Block Nerve Block Time Seen by Provider: 08:58 Date Seen: 04/01/23 Type of block requested by surgeon for post-operative analgesia: geniculars Side: left Time out performed: Yes Verification of patient name: Yes Verification of date of : Yes Site marking: site marked Name of person performing procedure: Ramso Continuous monitoring Was continuous monitoring of O2 sat, B/P, lunchroom monitor, recorded every 15 minutes?: Yes Procedure Checklist: sterile prep, needles and gloves Medications given in 5ml increments after negative aspiration: Ropivicaine %: 0.5 mL: 9 Needle gauge: 25 Patient tolerated procedure well: Yes Block Charges Block Charge (with Pro Fee): Genicular Nerve Block Use of Ultrasound Machine for Block: No
--- NOTE | 2023-04-01 10:52 | CRLHL7_ITS ---
For Patients: As a result of the Cures Act, medical imaging exams and procedure reports are released immediately into your electronic medical record. You may view this report before your referring provider. If you have questions, please contact your health care provider. INDICATION: Postop left knee. TECHNIQUE: AP and cross-table lateral views of the left knee. COMPARISON: None. FINDINGS: Immediate postop changes of left total knee arthroplasty. Prosthetic components well-seated and aligned. IMPRESSION: Immediate postop changes of left total knee arthroplasty without evidence of complication. Dictated by Haroon Cornell MD @ 04/01/2023 1:48:42 PM (Electronically Signed)
--- NOTE | 2023-04-01 10:55 | PM.ORPRC ---
Procedure Note Date of procedure: 04/01/23 Procedure: PREOPERATIVE DIAGNOSIS: Left knee osteoarthritis POSTOPERATIVE DIAGNOSIS: Left knee osteoarthritis NAME OF OPERATION: Left total knee arthroplasty SURGEON: Hu Kapadia MD PROJECTOR OPERATOR: KERRIE Gregg ANESTHESIA: Spinal ESTIMATED BLOOD LOSS: 0 mL COMPLICATIONS: None SPECIMENS: None DRAINS: None PREOPERATIVE ANTIBIOTICS: Ancef 2 grams IMPLANTS: 1. J&J Attune #6 posterior stabilized femur 2. #6 fixed-bearing tibia 3. #6 posterior stabilized, 5 mm fixed-bearing polyethylene 4. 41 patella INDICATIONS: The patient is a 62-year-old with a longstanding history of severe, unrelenting left knee pain secondary to end-stage (grade IV) left knee osteoarthritis. Despite appropriate nonoperative management, including activity modification, anti-inflammatories, [id number] pain medication, bracing, physical therapy, and injections they continue to have pain and disability. Operative intervention was offered. The risks, benefits and expected outcomes were discussed in detail. These included but were not limited to: Infection, bleeding, injury to blood vessel or nerve, venous thromboembolism. All questions were answered to their satisfaction. Use of an bilingual executive assistant was necessary throughout the case for patient positioning and safety, soft tissue retraction, and closure. PROCEDURE: Spinal anesthesia was administered. The patient was placed supine on the operating table. The bilingual executive assistant made sure the patient was positioned appropriately. The lower extremity was prepped and draped in the usual sterile fashion. The limb was exsanguinated with the Vishnu bandage. The pneumatic tourniquet was inflated to 300 mmHg. A standard anterior incision was made with the knee in flexion. Subcutaneous dissection was sharply taken through fascial layer #1. Full-thickness medial and lateral flaps were elevated. The bilingual executive assistant retracted the soft tissues and protected them throughout the case. A subvastus approach was made. The patella was everted. The infrapatellar fat pad was preserved. The menisci and cruciate ligaments were sharply d?brided. Marginal osteophytes were d?brided with the rongeur. The drill was used to penetrate the femoral canal. The canal was aspirated and irrigated with pulse lavage. The intramedullary femoral guide was placed for a 5-degree valgus cut, removing 10 mm off the distal femur. The saw was used to make the cut. Whitesides line and the trans epicondylar axis were marked. The femoral sizing guide was pinned onto the distal femur. Three degrees of external rotation nicely parallels the transepicondylar axis. Pins were placed for posterior referencing. The four-in-one cutting guide was pinned onto the distal femur. The anterior, posterior, and chamfer cuts were made. The bilingual executive assistant protected the collateral ligaments. The box cutting guide was pinned. The box cuts were made. The boxed trial was placed and was an excellent fit. Drill holes for the lugs were made. Attention was then turned to the proximal tibia. The extramedullary tibial guide was placed for a neutral varus/valgus cut with 5 degrees of posterior slope, removing 2 mm based off the medial tibial surface. The bilingual executive assistant protected the collateral ligaments and the neurovascular bundle. The saw was used to make the cut. Trial components were placed. The knee was nicely balanced in both flexion and extension. The trial components were removed. The tray was placed in appropriate rotation, parallel to our tibial cutting pins. It was pinned by the bilingual executive assistant and the drill and the punch were used. The tray was removed. The punch was used again. We placed a bone plug in the femoral canal. Attention was then turned to the patella. [place] patellar thickness was 26 mm. The lobster claw resection guide was used with the 9.5 mm marcio. The saw was used to make the cut. Drill holes were made by the bilingual executive assistant. The trial was placed and was an excellent fit. Cancellous surfaces were irrigated with pulse lavage and thoroughly dried by the bilingual executive assistant. We cemented the tibial component, then the femoral component. We impacted the 5 mm polyethylene onto the tibial tray. The knee was brought into full extension. We then cemented the patellar component. Excessive cement was removed. The cement was allowed to harden. The knee was taken through a range of motion and was found to be nicely balanced in both flexion and extension. The patella tracks centrally. The bilingual executive assistant did a three minute dilute Betadine solution soak. The bilingual executive assistant irrigated the wound with 3 liters of normal saline via pulse lavage. The bilingual executive assistant reapproximated the extensor mechanism with #1 Vicryl in an interrupted [id number]-[id number] fashion. The bilingual executive assistant then ran the extensor mechanism with a #1 PDO Stratafix. The bilingual executive assistant closed the subcutaneous tissues with a 3-0 Stratafix and the skin with a running 3-0 Stratafix in a subcuticular fashion. Glue was used to seal the skin. The bilingual executive assistant placed a dry dressing, ELEUTERIO stocking, and Polar Care. Sponge and needle counts were correct x2. The patient tolerated the procedure well. There were no apparent complications. They were carefully transferred to the hospital bed and taken to the postanesthesia care unit in satisfactory condition. PLAN: The patient will be mobilized with physical therapy. Aspirin will be used for DVT prophylaxis. They will be discharged to home once medically appropriate.
--- NOTE | 2023-04-01 11:31 | W.ANESCHARGE ---
Anesthesia Charges Start Date/Time Anesthesia Start Date: 04/01/23 Anesthesia Start Time: 09:19 Stop Date/Time Anesthesia Stop Date: 04/01/23 Anesthesia Stop Time: 11:28
[2023-04-01] MEDS: fentaNYL 100 MCG/2 ML inj 50 MCG IVP ×2 (11:38→11:48)
[2023-04-01] MEDS: HYDROmorphone 0.5 mg/0.5 ml inj IVP ×4 (13:08→20:19)
[2023-04-01] MEDS: OXYCODONE 5 MG TABLET PO ×6 (13:25→23:54)
[2023-04-01] MEDS: LACTATED RINGERS 1000 ML 1,000 ML 75 ML IV (13:25)
--- NOTE | 2023-04-01 15:37 | PC.NURSE ---
End of shift [id number] - Pt arrived from PACU at approximately 1200. Pt alert, oriented, and cooperative upon arrival. Pt reported pain on arrival as 3/10. Tolerating O2 via nasal cannula at 2L to maintain O2 saturation. Fluids d/c'd per order as pt tolerating regular diet and fluids. Pt denies SOB, nausea, dizziness. Reported pain in L knee as 6/10 that increased to 9/10 with pharmaceutical interventions per MAR. RN consulted with charge nurse, contacted anesthesia regarding pt pain. RN directed to maintain MAR interventions and contact ortho if additional orders needed. Pt agreeable to continue with current active med orders for pain management, recommendation shared at handoff with receiving RN. Pt not up during shift and did not void during shift. Dressing CDI, pedal pulse present, pt able to wiggle toes on L foot. Family at bedside upon arrival to floor.
--- NOTE | 2023-04-01 15:38 | REH.PT ---
Pt approached X 2 this afternoon for PT Eval. Unwilling to try mobilizing with PT. Will plan for PT eval tomorrow.
[2023-04-01] MEDS: ONDANSETRON 2 MG/ML inj 4 MG IVP (15:58)
--- NOTE | 2023-04-01 16:08 | P.IMCN_ITS ---
Date of Consult Patient: [facility] Patient Consult date: 04/01/23 Requesting Physician: Orthopedics Primary Care Provider: Marlee Luis PA-C Consult Narrative Reason for consult: Medical management Narrative: Ap Pichardo is a 62 year old male past medical history significant for hypertension, hyperlipidemia, Meniere's, SG, DDD, osteoarthritis, sedative dependence is POD#0 s/p left TKA. Postoperatively, patient reports pain 6-7/10 as block is wearing off. Using Dilaudid as needed. Tolerating orals without nausea vomiting. No headache. There have been no perioperative complications or nursing concerns reported. Estimated total blood loss documented as 0 ml. Updated and reviewed the active medical problems, past medical history, past surgical history, social history, allergies and medications in our electronic EMR. Review of Systems Narrative: REVIEW OF SYSTEMS: Complete review of systems performed and negative unless otherwise stated in HPI or below. PFSH PFSH Medical History Meniere disease ?H81.09 - Meniere's disease, unspecified ear (ICD-10) Hypertension ?I10 - Essential (primary) hypertension (ICD-10) Alcohol abuse (08/14/11) ?F10.10 - Alcohol abuse, uncomplicated (ICD-10) Generalized anxiety disorder ?F41.1 - Generalized anxiety disorder (ICD-10) Chewing tobacco use (08/14/11) ?Z72.0 - Tobacco use (ICD-10) Surgical History History of endoscopic sinus surgery ?Z98.890 - Other specified postprocedural states (ICD-10) History of colonoscopy ?Z98.890 - Other specified postprocedural states (ICD-10) Status post right knee replacement (11/20/21) ?Z96.651 - Presence of right artificial knee joint (ICD-10) History of ear surgery ?Z98.890 - Other specified postprocedural states (ICD-10) History of facial surgery ?Z98.890 - Other specified postprocedural states (ICD-10) History of tonsillectomy and adenoidectomy ?Z90.89 - Acquired absence of other organs (ICD-10) Hx of wisdom tooth extraction ?K08.409 - Partial loss of teeth, unspecified cause, unspecified class (ICD- 10) S/P appendectomy (1982) ?Z90.49 - Acquired absence of other specified parts of digestive tract (ICD- 10) Family History Father Depression Heart disease History of heart artery stent, Onset Age: 65 Prostate cancer Alcohol dependence Brother Depression Social History Narrative: Living with girlfriend former chewing tobacco user What is your current living situation?: I presently have a place to live Previous occupational history: 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 Driving times are 45 minutes in cab at the most per leg of trip. This is a restriction that he has due to h/o back injury from miguel a. Smoking Status: Never smoker Do you use any of these nicotine containing products: None and Other Nicotine containing products detail: nicotine pouches Second hand tobacco smoke exposure: No How often do you have a drink containing alcohol: never AUDIT-C Alcohol total score: 0 Non-prescribed substance use: denies use Meds Home Medications and Allergies Home Medications Medication Instructions Recorded Confirmed Type clonazepam 1 mg tablet (Klonopin) 1 mg PO TID 10/31/21 04/01/23 History amlodipine 10 mg tablet 10 mg PO DAILY 11/20/21 04/01/23 History atorvastatin 20 mg tablet 20 mg PO HS 11/20/21 04/01/23 History gabapentin 600 mg tablet 600 mg PO TID PRN 11/20/21 04/01/23 History mirtazapine 15 mg tablet 15 mg PO HS 11/20/21 03/28/23 History sertraline 100 mg tablet 200 mg PO DAILY 11/20/21 03/28/23 History tadalafil 10 mg tablet 10 mg PO DAILY PRN 11/20/21 03/28/23 History naproxen 500 mg tablet 500 mg PO Q12H PRN 04/01/23 04/01/23 History tizanidine 4 mg tablet 4 mg PO Q6H PRN 04/01/23 04/01/23 History Allergies Allergy/AdvReac Type Severity Reaction Status Date / Time amoxicillin Allergy Mild Rash Verified 04/01/23 07:12 Penicillins Allergy Mild Rash Verified 04/01/23 07:12 codeine Allergy Unknown Jittery Verified 04/01/23 07:12 and Cannot Sleep Exam Narrative: Exam Narrative: PHYSICAL EXAM General: Pleasant, conversant, NAD HEENT: Normocephalic, atraumatic, sclera white, EOMI, oral mucosa moist Cardiovascular: RRR, S1S2. No pitting edema Pulmonary: CTA bilaterally without rhonchi, rales, expiratory wheezes. No dyspnea Abdominal: Soft, nondistended, NTTP Neurological: Alert, answering questions appropriately, cranial nerves intact, no focal findings Extremities: No gross joint deformity or swelling. Postoperative dressing in place, dry. Neurovascularly intact Skin: Warm, dry. Const: Vital Signs, click to edit/add: Vital Signs - 24 hr 04/01/23 07:45 04/01/23 08:55 04/01/23 09:00 Temperature 98.1 F Pulse Rate 54 L 52 L 52 L Pulse Rate [Left P ulse Oximeter] Respiratory Rate 16 16 14 Blood Pressure 138/79 145/85 H 146/86 H Blood Pressure [Ri ght Arm] Pulse Oximetry 64 L 100 100 Oxygen Delivery Me thod Room Air Nasal Cannula Nasal Cannula Oxygen Flow Rate 3 3 04/01/23 09:05 04/01/23 09:10 04/01/23 11:23 Temperature 97.6 F Pulse Rate 56 L 54 L 65 Pulse Rate [Left P ulse Oximeter] Respiratory Rate 14 14 12 Blood Pressure 145/90 H 145/81 H 125/69 Blood Pressure [Ri ght Arm] Pulse Oximetry 100 97 97 Oxygen Delivery Me thod Nasal Cannula Non Rebreather Mas k Oxygen Flow Rate 3 6 04/01/23 11:25 04/01/23 11:30 04/01/23 11:35 Temperature Pulse Rate 63 61 65 Pulse Rate [Left P ulse Oximeter] Respiratory Rate 14 12 12 Blood Pressure 121/68 135/87 132/85 Blood Pressure [Ri ght Arm] Pulse Oximetry 98 97 94 Oxygen Delivery Me thod Room Air Oxygen Flow Rate 04/01/23 11:40 04/01/23 11:45 04/01/23 11:50 Temperature Pulse Rate 69 67 63 Pulse Rate [Left P ulse Oximeter] Respiratory Rate 12 14 20 Blood Pressure 145/82 H 153/93 H 155/97 H Blood Pressure [Ri ght Arm] Pulse Oximetry 93 94 95 Oxygen Delivery Me thod Nasal Cannula Oxygen Flow Rate 2 04/01/23 11:55 04/01/23 11:58 04/01/23 12:00 Temperature 97.1 F L 97.4 F L Pulse Rate 60 61 Pulse Rate [Left P ulse Oximeter] 60 Respiratory Rate 12 12 16 Blood Pressure 149/98 H Blood Pressure [Ri ght Arm] 143/96 H Pulse Oximetry 94 97 96 Oxygen Delivery Me thod Nasal Cannula Nasal Cannula Oxygen Flow Rate 2 2 04/01/23 12:15 04/01/23 12:26 04/01/23 12:30 Temperature 97.2 F L 97.4 F L Pulse Rate 60 Pulse Rate [Left P ulse Oximeter] 59 L 59 L Respiratory Rate 16 16 16 Blood Pressure Blood Pressure [Ri ght Arm] 136/96 H 143/96 H 131/74 Pulse Oximetry 97 96 Oxygen Delivery Me thod Nasal Cannula Nasal Cannula Nasal Cannula Oxygen Flow Rate 2 2 2 04/01/23 12:45 04/01/23 13:00 04/01/23 13:30 Temperature 97.0 F L 97.0 F L 97.2 F L Pulse Rate Pulse Rate [Left P ulse Oximeter] 59 L 69 62 Respiratory Rate 16 16 16 Blood Pressure Blood Pressure [Ri ght Arm] 131/74 133/86 151/84 H Pulse Oximetry 96 97 96 Oxygen Delivery Me thod Nasal Cannula Nasal Cannula Nasal Cannula Oxygen Flow Rate 2 2 2 04/01/23 14:00 04/01/23 15:00 Temperature 97.4 F L Pulse Rate Pulse Rate [Left P ulse Oximeter] 63 68 Respiratory Rate 20 20 Blood Pressure Blood Pressure [Ri ght Arm] 166/87 H 154/98 H Pulse Oximetry 97 97 Oxygen Delivery Me thod Nasal Cannula Nasal Cannula Oxygen Flow Rate 2 2 Assessment and Plan Assessment and plan (1) Osteoarthritis of left knee: Problem comment: -POD#0 s/p left TKA -perioperative management including pain management and anticoagulation per Orthopedic surgery -encourage postoperative pulmonary hygiene -PT OT consults -plan to discharge home tomorrow Status: Chronic (2) Hypertension: Problem comment: -blood pressures stable, resume amlodipine Status: Chronic (3) Hyperlipidemia: Problem comment: -continue statin Status: Chronic (4) Sedative dependence: Problem comment: -had been using Xanax, was switched to Klonopin which he takes 3 times daily -ordered 1mg dose for bedtime prn tonight, monitoring post operative sedation. Patient in agreement Status: [facility] medicine team will sign off. Please contact our service with any questions or concerns
[2023-04-01] MEDS: clonazePAM 0.5 MG TABLET 1 MG PO (19:06)
[2023-04-01] MEDS: ATORVASTATIN 10 MG TABLET 20 MG PO (20:22)
[2023-04-01] MEDS: ASPIRIN 81 MG TABLET EC PO (20:22)
--- NOTE | 2023-04-01 23:39 | PC.NURSE ---
End of Shift: Patient pleasant and cooperative. Afebrile. Dressing to left knee C/D/I. CMS intact. Up to chair and bathroom with 1 assist, walker and gait belt. Rating pain 5-8/10 and managed with PRN Oxycodone and Dilaudid. Tolerating regular diet. Per ortho PA no post-op antibiotics needed.
[2023-04-02 02:00] VITALS: BP 140/70; PULSE 66; RESP 16; TEMP 37.1; O2SAT 91
[2023-04-02] MEDS: MIRTAZAPINE 15 MG TABLET PO (02:06)
[2023-04-02] MEDS: ACETAMINOPHEN 500 MG TABLET 1000 MG PO ×2 (02:06→07:42)
[2023-04-02] MEDS: OXYCODONE 5 MG TABLET PO ×3 (02:06→10:12)
[2023-04-02 06:48] LABS: Basophils Percent Auto 0.1 % (0.0-3.0); Hematocrit 34.3 % (37.0-53.0); Hemoglobin* 11.5 gm/dL (13.5-17.5); Immature Granulocytes Pct Auto 0.1 %; Lymphocytes Percent Auto 3.8 % (20-44); Mean Corpuscular HGB Conc 34 gm/dL (32-36); Mean Corpuscular Hemoglobin 30 pg (26-34); Mean Corpuscular Volume 90 fL (80-100); Monocytes Percent Auto 10.1 % (0.0-11.0); Neutrophils Percent Auto 85.9 % (42.0-72.0); Platelet Count* 307 K/uL (140-440); RDW Coefficient of Variation % 12.9 % (11.5-15.5); White Blood Count* 14.04 K/uL (4.50-11.00)
[2023-04-02 07:00] VITALS: BP 143/82; PULSE 62; RESP 16; TEMP 36.8; O2SAT 89
--- NOTE | 2023-04-02 07:02 | PC.NURSE ---
Pt alert and oriented x3. Afebrile. Pt reports 6/10 pain in left knee, pain managed with cryo cuff and both PRN and scheduled medications. Pt?s left knee dressing is CDI. Pt is voiding, tolerating a regular diet and is up SBA with walker and gait belt to bathroom. Pt slept intermittently throughout most of night.??
[2023-04-02 07:04] LABS: INR 1.07 (0.91-1.10); Prothrombin Time 14.6 Seconds
[2023-04-02 07:07] LABS: Potassium* 4.6 mmol/L (3.6-5.1); Sodium* 135 mmol/L (135-149)
[2023-04-02 07:10] LABS: Blood Urea Nitrogen* 18 mg/dL (7-30); Creatinine* 0.8 mg/dL (0.5-1.5); Est. Creatinine Clearance* 77.57; Estimated Glomerular Filt Rate 101 ml/min
--- NOTE | 2023-04-02 07:25 | PM.ORPN ---
Subjective Subjective Time Seen by Provider: 07:26 Date Seen: 04/02/23 Principal diagnosis: Status post Left knee replacement Interval history: Ap is comfortable this morning. He states he got a couple hours of rest. He denies nausea vomiting. He has been ambulating within his room and to the restroom without problem. Ortho Exam Narrative Exam Narrative: Alert and oriented x3. Patient is in no acute distress. Converses without labored breathing. Hearing is grossly intact. Ambulates with a walker. Examination of the left knee shows dressing is intact. Large effusion. Minimal soft tissue edema. Bilateral calves are soft and nontender. CMS intact left lower extremity. He is able to straight leg raise about 1 in off the bed he in supine position. Quad strength 4+/5. Const Vital Signs, click to edit/add: Vital Signs - 24 hr 04/01/23 07:45 04/01/23 08:55 04/01/23 09:00 Temperature 98.1 F Pulse Rate 54 L 52 L 52 L Pulse Rate [Left Pulse Oximeter] Respiratory Rate 16 16 14 Blood Pressure 138/79 145/85 H 146/86 H Blood Pressure [Right Arm] Pulse Oximetry 64 L 100 100 Oxygen Delivery Method Room Air Nasal Cannula Nasal Cannula Oxygen Flow Rate 3 3 04/01/23 09:05 04/01/23 09:10 04/01/23 11:23 Temperature 97.6 F Pulse Rate 56 L 54 L 65 Pulse Rate [Left Pulse Oximeter] Respiratory Rate 14 14 12 Blood Pressure 145/90 H 145/81 H 125/69 Blood Pressure [Right Arm] Pulse Oximetry 100 97 97 Oxygen Delivery Method Nasal Cannula Non Rebreather Mask Oxygen Flow Rate 3 6 04/01/23 11:25 04/01/23 11:30 04/01/23 11:35 Temperature Pulse Rate 63 61 65 Pulse Rate [Left Pulse Oximeter] Respiratory Rate 14 12 12 Blood Pressure 121/68 135/87 132/85 Blood Pressure [Right Arm] Pulse Oximetry 98 97 94 Oxygen Delivery Method Room Air Oxygen Flow Rate 04/01/23 11:40 04/01/23 11:45 04/01/23 11:50 Temperature Pulse Rate 69 67 63 Pulse Rate [Left Pulse Oximeter] Respiratory Rate 12 14 20 Blood Pressure 145/82 H 153/93 H 155/97 H Blood Pressure [Right Arm] Pulse Oximetry 93 94 95 Oxygen Delivery Method Nasal Cannula Oxygen Flow Rate 2 04/01/23 11:55 04/01/23 11:58 04/01/23 12:00 Temperature 97.1 F L 97.4 F L Pulse Rate 60 61 Pulse Rate [Left Pulse Oximeter] 60 Respiratory Rate 12 12 16 Blood Pressure 149/98 H Blood Pressure [Right Arm] 143/96 H Pulse Oximetry 94 97 96 Oxygen Delivery Method Nasal Cannula Nasal Cannula Oxygen Flow Rate 2 2 04/01/23 12:15 04/01/23 12:26 04/01/23 12:30 Temperature 97.2 F L 97.4 F L Pulse Rate 60 Pulse Rate [Left Pulse Oximeter] 59 L 59 L Respiratory Rate 16 16 16 Blood Pressure Blood Pressure [Right Arm] 136/96 H 143/96 H 131/74 Pulse Oximetry 97 96 Oxygen Delivery Method Nasal Cannula Nasal Cannula Nasal Cannula Oxygen Flow Rate 2 2 2 04/01/23 12:45 04/01/23 13:00 04/01/23 13:30 Temperature 97.0 F L 97.0 F L 97.2 F L Pulse Rate Pulse Rate [Left Pulse Oximeter] 59 L 69 62 Respiratory Rate 16 16 16 Blood Pressure Blood Pressure [Right Arm] 131/74 133/86 151/84 H Pulse Oximetry 96 97 96 Oxygen Delivery Method Nasal Cannula Nasal Cannula Nasal Cannula Oxygen Flow Rate 2 2 2 04/01/23 14:00 04/01/23 15:00 04/01/23 15:00 Temperature 97.4 F L Pulse Rate Pulse Rate [Left Pulse Oximeter] 63 68 62 Respiratory Rate 20 20 18 Blood Pressure Blood Pressure [Right Arm] 166/87 H 154/98 H Pulse Oximetry 97 97 Oxygen Delivery Method Nasal Cannula Nasal Cannula Oxygen Flow Rate 2 2 04/01/23 16:00 04/01/23 17:00 04/01/23 18:00 Temperature 98.1 F 97.8 F 98.1 F Pulse Rate Pulse Rate [Left Pulse Oximeter] 62 72 72 Respiratory Rate 18 18 18 Blood Pressure Blood Pressure [Right Arm] 162/84 H 161/94 H 149/87 H Pulse Oximetry 96 92 93 Oxygen Delivery Method Room Air Room Air Room Air Oxygen Flow Rate 04/01/23 21:30 04/01/23 23:50 04/01/23 23:50 Temperature 98.4 F 97.9 F Pulse Rate Pulse Rate [Left Pulse Oximeter] 64 62 62 Respiratory Rate 16 16 16 Blood Pressure Blood Pressure [Right Arm] 153/83 H 155/84 H Pulse Oximetry 94 93 Oxygen Delivery Method Room Air Room Air Oxygen Flow Rate 04/02/23 02:00 Temperature 98.8 F Pulse Rate Pulse Rate [Left Pulse Oximeter] 66 Respiratory Rate 16 Blood Pressure Blood Pressure [Right Arm] 140/70 H Pulse Oximetry 91 Oxygen Delivery Method Room Air Oxygen Flow Rate Assessment and Plan Assessment and plan (1) Status post left knee replacement: Problem details: 04/01/2023 Status: Acute Assessment and Plan: Plan for discharge is today to home if they meet discharge criteria. DVT prophylaxis includes aspirin 81 mg twice daily x1 month, Ryder stockings x1 month may remove for 1 hr per day, frequent ambulation Remove dressing in 1 week. Observe wound and phone Orthopedics with any questions or concerns Return to clinic in 1 week for a wound check Return to clinic in 6 weeks with surgeon Minimize narcotic use. Wean off and discontinue soon as possible. Activities as tolerated. No strenuous activity. Outpatient physical therapy as scheduled. Ice and elevate the operative extremity. No restriction on ice.
[2023-04-02 07:27] LABS: Slide Review Reflex No
[2023-04-02] MEDS: SENNOSIDES 1 TAB TABLET 2 TAB PO (07:42)
[2023-04-02] MEDS: ASPIRIN 81 MG TABLET EC PO (07:43)
[2023-04-02] MEDS: AMLODIPINE 10 MG TABLET PO (07:44)
--- NOTE | 2023-04-02 10:37 | PC.SOCIAL ---
Discharge planning: Pt requested information on transportation to and from outpatient PT in [place]. Pt lives in [place]. family preservation caseworker provided pt with information on [employer]. family preservation caseworker explained that pt needs to call [employer] in advance to set-up the ride and it's $[address]. Pt was thankful for the information. Social work to follow-up as needed.
--- NOTE | 2023-04-02 11:09 | PC.NURSE ---
Discharge - Pt alert, oriented, cooperative. Up with PT/OT and walker, standby assistance needed for walking in halls and to bathroom. Pt reported in L knee as 3/10 that increased with movement. Pain managed with medication in MAR with verbalized improvement. Pedal pulse present, dressing CDI, cryocuff in place. Pt reported to PT and OT that he planned to drive himself to therapy sessions while he was taking narcotic medication. director of special services contacted and pt was provided with transportation options in his area. RN verbally emphasized that pt should not drive while taking narcotic pain medication. Pt verbalized that he would call and try to use the transportation resources he was provided with. Tolerating RA, regular food, regular fluids. IV removed with catheter intact, compression wrap placed over gauze on IV site. Pt discharged via wheelchair to home with significant other at approximately 1050.
== END 2023-04-02 10:50 | disposition home or self-care (01) ==
LOC: OR 06:40 → MEDSURG 06:44
PROVIDERS: PCP Physician Assistant Medical; Visit Provider Orthopaedic Surgery
PROC: (CPT 27447; principal; 2023-04-01 09:15)
DX: M17.12 Unilateral primary osteoarthritis, left knee (principal); G89.18 Other acute postprocedural pain; I10 Essential (primary) hypertension; F41.1 Generalized anxiety disorder; F13.20 Sedative, hypnotic or anxiolytic dependence, uncomplicated; F10.10 Alcohol abuse, uncomplicated
CPT/HCPCS: 27447; 01214; 01402; 36415; 64447; 64454; 73560; 76942; 82565; 84132; 84295; 84520; 85025; 85610; 97116; 97161; 97165; A9270; C1776; J0690; J1100; J1170; J2250; J2405; J2704; J2795; J3010; J7120

== ENCOUNTER 2023-05-06 10:30 | Outpatient (RCR) | payer OTHER, SELFPAY ==
--- NOTE | 2023-04-04 07:29 | PT.OPEX ---
PT [place] Outpatient Eval PT [facility] Outpatient Eval Start: 04/03/23 10:43 Freq: Status: Active Protocol: Document 04/03/23 10:43 HIREN (Rec: 04/03/23 10:47 HIREN [id number]) E-signed By Charo Chaudhry DPT Physical Therapy Outpatient Evaluation Insurance Information Recert Due Date 06/02/23 Insurance Name Health [facility],Medicaid Medical Diagnosis s/p L TKA 04/01/23 Treating Diagnosis s/p L TKA 04/01/23 with L knee pain, impaired L knee ROM, impaired L knee/LE mobility/ strength, limping/antalgic gait, limited tolerance for extended standing/walking/ stairs Subjective Subjective Patient reports chronic L knee pain leading up to L TKA surgery on 04/01/23. States he d/c home the next day. He lives with his fiance, she is able to assist as needed at home. Patient reports he is getting around well with his 4ww. He is doing his HEP as able, limited some by pain. Pain rated 9/10. He is using pain meds, tylenol regularly. Icing regularly. Has a follow up with PA next week. Date of Last Physician Visit 04/02/23 Date of Surgery (If applicable) 04/01/23 Precautions Treatment Precautions/Contraindications hx R TKA Assessment Assessment/Impression Patient is a 62 year old male s/p L TKA 04/01/23 with L knee pain, impaired L knee ROM, impaired L knee/LE mobility/ strength, limping/antalgic gait, limited tolerance for extended standing/walking/ stairs. Pain rated 9/10. He is using pain meds, tylenol regularly. Icing regularly. Gait is slow, limping, antalgic using 4ww. Patient with a weak quad set, needing assist with SAQ, SLR, LAQ exercises. L knee ROM 0-5-90 degrees. Reviewed TKA exercises this session, PT assist with exercises as needed. Patient instructed to use a strap, belt for his HEP . He expressed understanding. Patient with hx of R TKA in 2021. He has follow up with PA next week to remove surgical dressing. Patient would benefit from skilled PT for pain/sx management, improved L knee ROM, improved L knee/LE mobility/strength, gait training, balance/ proprioception training, and establishment of HEP. Plan of Care Rehabilitation Potential Good Physical Therapy Goals 1. Decrease L knee pain to less than/equal to 3/10 with daily activities and with the progression of PT activities over the next 4-6 weeks. 2. Improve L knee ROM to 0- 120 degrees or greater over the next 6-8 weeks for return to functional knee ROM and improved gait mechanics. 3. Improve L knee/LE mobility /strength over the next 6-8 weeks for return to transfers with ease, return to extended standing/ walking for ADLs/household activities, and for improved gait mechanics without AD. 4. Patient will be I with HEP within 8 weeks for progression toward above goals, ongoing self-management of pain/swelling, ongoing self improvements in R knee ROM/strength and for return to normal gait with/ without AD. Coordination/Communication With Referral Source Treatment Plan/Direct Interventions Gait Training,Manual Therapy, Therapeutic Exercises Frequency/Duration 2x/week Patient Will Be Discharged From Therapy Completion of LTG(s),Skills Plateau,Independent w/HEP, Independently Progressing Evaluation Billing Untimed Code Treatment Minutes 16 Complexity Moderate Certification Information Initial Certification Date 04/03/23 Ending Certification Date 06/02/23 Provider Signature Shows Agreement With POC & Medical Necessity Physician Signature & Date Requested Please Sign/Date Here Physician Comment/Change : Physician NPI Number #
== END 2023-09-03 23:59 | disposition home or self-care (01) ==
PROVIDERS: PCP Physician Assistant Medical; Visit Provider Orthopaedic Surgery
DX: Z96.652 Presence of left artificial knee joint (principal); M25.562 Pain in left knee; Z74.09 Other reduced mobility; R26.89 Other abnormalities of gait and mobility; R29.898 Other symptoms and signs involving the musculoskeletal system; Z51.89 Encounter for other specified aftercare
CPT/HCPCS: 97110; 97162; A9270; J2250; J3010